=== PATIENT | female | born 2000 | race Hispanic/Latino ===

== ENCOUNTER 2024-03-02 05:10 | Emergency (ER) | payer SELFPAY ==
[2024-03-02 05:16] VITALS: BP 112/77
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
[2024-03-02] MEDS: DUONEB 3 ML INH (06:02)
[2024-03-02] MEDS: DELTASONE 50 MG PO (06:02)
== END 2024-03-02 07:13 | disposition home or self-care (01) ==
LOC: EMR 05:10
PROVIDERS: EMERGENCY PHYSICIAN Emergency Medicine
DX: J45.901 Unspecified asthma with (acute) exacerbation (principal); R06.00 Dyspnea, unspecified
CPT/HCPCS: 99283; 94640; 71046